=== PATIENT | female | born 1955 | race Caucasian/White ===

== ENCOUNTER 2021-03-19 13:55 | Emergency (ER) | payer OTHER ==
[~2021-03-19] VITALS: Ht 157.5 cm; Wt 63.7 kg
--- NOTE | 2021-03-19 14:30 | NUR ---
PT BROUGHT BACK TO ROOM FROM TRIAGE VIA WHEELCHAIR. PT'S DAUGHTER AT BEDSIDE, CO INCREASING CONFUSION OVER THE PAST MONTH, WITH THE LAST 3 DAYS BECOMING MORE FORGETFUL AND CONFUSED. PT WAS SEEN AT 4 DAYS AGO AND WAS DIAGNOSED WITH A UTI. PT ON MACROBID FOR INFECTION. PT ALSO CO INTERMITTENT LEFT CHEST PAIN, UNDER LEFT BREAST THAT IS PAINFUL WITH PALPATION. PT DENIES ANY RECENT FEVER, SOB, WEAKNESS, N/V/D.
--- NOTE | 2021-03-19 14:40 | NUR ---
PT TO CT
[2021-03-19 14:50] LABS: MICROSCOPIC INDICATED
[2021-03-19 14:54] LABS: BASOPHILS % (AUTO) 1 % (0-1); EOSINOPHILS % (AUTO) 1 % (1-7); LYMPHOCYTES % (AUTO) 29 % (22-44); MEAN CORPUSCULAR HEMOGLOBIN 29.8 pg (27.0-34.8); MEAN CORPUSCULAR HGB CONC 33.4 g/dL (32.4-35.8); MEAN PLATELET VOLUME 9.3 fL (7.4-10.4); MONOCYTES % (AUTO) 7 % (2-9); NEUTROPHILS % (AUTO) 63 % (42-75); PLATELET COUNT 159 x10^3/uL (130-400); RED BLOOD COUNT 5.11 x10^6/uL (3.82-5.3); RED CELL DISTRIBUTION WIDTH 14.5 % (9.6-15.2)
[2021-03-19 15:07] LABS: ALBUMIN 3.6 g/dL (3.4-5.0); ANION GAP 6 mmol/L (5-15); CALCIUM 9.2 mg/dL (8.5-10.1); CHLORIDE 108 mmol/L (98-107)
[2021-03-19 15:11] LABS: CREATININE 0.84 mg/dL (0.55-1.02)
[2021-03-19 15:12] LABS: ALANINE AMINOTRANSFERASE 35 U/L (12-78); ALKALINE PHOSPHATASE 112 U/L (45-117); BILIRUBIN,TOTAL 0.3 mg/dL (0.2-1.0); TOTAL PROTEIN 6.8 g/dL (6.4-8.2); TROPONIN I < 0.015 ng/mL (0.000-0.045)
--- NOTE | 2021-03-19 15:25 | NUR ---
ER AT BEDSIDE
[2021-03-19 15:34] VITALS: BP 123/74
--- NOTE | 2021-03-19 15:34 | NUR ---
PT TO MRI
--- NOTE | 2021-03-19 16:02 | NUR ---
PT BACK FROM MRI. RESTING COMFORTABLY IN [facility]. FAMILY AT BEDSIDE.
--- NOTE | 2021-03-19 16:54 | NUR ---
DISCHARGE INSTRUCTIONS REVIEWED WITH PT. ALL QUESTIONS ANSWERED AT THIS TIME.
== END 2021-03-19 16:56 | disposition home or self-care (01) ==
LOC: ED 16:50
DX: N30.00 Acute cystitis without hematuria (principal); R41.82 Altered mental status, unspecified; R07.9 Chest pain, unspecified; E78.5 Hyperlipidemia, unspecified; I10 Essential (primary) hypertension; Z85.3 Personal history of malignant neoplasm of breast; Z90.49 Acquired absence of other specified parts of digestive tract; Z88.2 Allergy status to sulfonamides; Z90.710 Acquired absence of both cervix and uterus; Z86.39 Personal history of other endocrine, nutritional and metabolic disease
CPT/HCPCS: 36415; 70450; 70551; 71045; 80053; 81001; 84484; 85025; 87086; 93005; 99285